=== PATIENT | female | born 1985 | race Caucasian/White ===

== ENCOUNTER 2017-03-05 05:30 | Inpatient (IN) | payer OTHER ==
[2017-03-05] MEDS: Lactated Ringer's 1,000 ML IV SCH ×2 (07:45→11:43)
[2017-03-05 08:06] VITALS: BMI 24.7
[2017-03-05] MEDS ORDERED: Misoprostol 200 MCG TAB PR PRN (08:16)
[2017-03-05] MEDS ORDERED: HYDROcodone/Acetaminophen 5/325 mg Tablet PO PRN (08:16)
[2017-03-05] MEDS ORDERED: Ibuprofen 800 MG TAB PO PRN (08:16)
[2017-03-05] MEDS ORDERED: LR / Pitocin 40 units/1000 ml 1,000 ML IV PRN (08:16)
[2017-03-05] MEDS ORDERED: Promethazine HCl 25 MG/ML VIAL IM PRN ×2 (08:16→13:31)
[2017-03-05] MEDS ORDERED: Lidocaine 1% (PF) 30 ML VIAL SC PRN (08:16)
[2017-03-05 08:30] LABS: Hematocrit 32.7 % (36.0-47.0); Mean Platelet Volume 9.8 fL (7.4-10.4); Red Blood Cell (RBC) Count 3.51 mill/uL (4.20-5.40); White Blood Cell (WBC) Count 5.5 thou/uL (4.8-10.8)
[2017-03-05] MEDS: LR 500 ML/Oxytocin 10 units 500 ML IV SCH (08:43)
[2017-03-05] MEDS ORDERED: Fentanyl 4 mcg/Marc 0.1% Cadd 100 ML ONE (10:55)
[2017-03-05] MEDS ORDERED: Ondansetron HCl/PF 4 MG/2 ML Vial IVP PRN (13:31)
[2017-03-05] MEDS ORDERED: diphenhydrAMINE 50 MG/ML VIAL IVP PRN (13:31)
[2017-03-05] MEDS ORDERED: Acetaminophen 325 MG TAB PO PRN (13:31)
[2017-03-05] MEDS ORDERED: Naloxone HCl 0.4 mg/ml Vial IVP PRN ×2 (13:31)
[2017-03-05] MEDS ORDERED: ePHEDrine/0.9% NaCl/PF SYRINGE 50 mg/10 ml SLOW IVP PRN (13:31)
[2017-03-05] MEDS ORDERED: Lactated Ringer's 500 ML IV PRN (13:31)
[2017-03-05] MEDS ORDERED: Eucerin (Mineral Oil/Petrolatum,White) 30 gm Jar TOP PRN (13:31)
[2017-03-05] MEDS ORDERED: Fentanyl 4mcg/Marcaine 0.1% Cassette 100 ML EPIDURAL SCH (13:45)
[2017-03-05] MEDS ORDERED: Communication Order-Pharmacy FS SCH (13:45)
[2017-03-05] MEDS: Ondansetron HCl/PF 4 MG/2 ML Vial IVP PRN ×2 (14:45→19:29)
[2017-03-05] MEDS ORDERED: Adacel (T-DAP) 0.5 ML VIAL IM ONE (16:18)
[2017-03-05] MEDS ORDERED: Bisacodyl 10 MG SUPP PR PRN (16:18)
[2017-03-05] MEDS ORDERED: Milk Of Magnesia 30 ML UDCUP PO PRN (16:18)
[2017-03-05] MEDS ORDERED: Benzocaine/Menthol 20-0.5% 60 ML CAN TOP PRN (16:18)
--- NOTE | 2017-03-05 16:24 | PDOC.OPDEL ---
OB Operative/Delivery Note Delivery Dr/Surgeon: ASHLEIGH Pre-Delivery Diagnosis: elective induction Procedure/Post Delivery Dx: spontaneous vaginal delivery Weeks gestation: 40 Anesthesia: epidural - Findings A Sex: male Weight: 7 lb 8 oz - 5 min: 8 - 10 min: 9 - Additional Findings/Plan Placenta delivered: spontaneous Repaired Obstetrical Laceration: 2nd degree Estimated blood loss: 250ML Post delivery plan: routine recovery
[2017-03-05] MEDS ORDERED: LR / Pitocin 40 units/1000 ml 1,000 ML IV SCH (16:30)
[2017-03-05] MEDS: Ferrous Sulfate 325 MG TAB PO SCH (18:02)
[2017-03-05] MEDS ORDERED: Bupivacaine 0.25% HCL 30 ML VIAL ONE (20:06)
[2017-03-05] MEDS: Ibuprofen 800 MG TAB PO SCH (20:46)
[2017-03-05] MEDS: Docusate (Surfak) 240 MG CAP PO SCH (20:46)
[2017-03-05] MEDS ORDERED: Hydrocortisone/Pramoxine (Proctofoam HC) 10 GM BOX PR PRN (22:02)
[2017-03-06] MEDS: Lactated Ringer's 1,000 ML IV SCH ×3 (00:54→16:23)
[2017-03-06] MEDS: Ibuprofen 800 MG TAB PO SCH ×3 (05:00→21:48)
[2017-03-06] MEDS: LR 500 ML/Oxytocin 10 units 500 ML IV SCH (07:44)
[2017-03-06] MEDS: Ferrous Sulfate 325 MG TAB PO SCH ×2 (07:44→17:27)
[2017-03-06] MEDS: Prenatal Vitamin 1 TAB PO SCH (08:20)
[2017-03-06] MEDS: Docusate (Surfak) 240 MG CAP PO SCH ×2 (08:20→21:49)
--- NOTE | 2017-03-06 09:18 | PDOC.PP ---
Post Progress Note Post Day #: 1 PO intake tolerated: yes Flatus: yes Ambulation: yes Vital Signs (12 hours) Temp Pulse Resp BP 03/06/17 08:11 98.2 F 69 20 126/73 03/06/17 04:55 98.0 F 64 18 125/75 03/06/17 00:10 98.3 F 59 L 18 03/05/17 22:40 98.3 F 59 L 18 144/75 H Weight Weight 172 lb - Physical Examination General: NAD Cardiovascular: no m/r/g, RRR Respiratory: clear to ausculation bilateral Abdominal: + bowel sounds, lochia, no distention, appropriately TTP Result Diagrams: 03/05/17 07:45 Additional Labs: Post Labs Hep Bs Antigen Non-Reactive S/CO (NonReactive) 03/05/17 07:45 - Assessment/Plan Doing well post day 1 routine care. Possible d/c this PM or in AM. Has 6 week post f/u
[2017-03-06] MEDS ORDERED: traMADol HCl 50 MG TAB PO PRN ×2 (11:49→16:18)
[2017-03-06] MEDS ORDERED: HYDROcodone/Acetaminophen 5/325 mg Tablet PO PRN (13:01)
[2017-03-06] MEDS: HYDROcodone/Acetaminophen 5/325 mg Tablet PO PRN ×2 (15:12→20:20)
[2017-03-07] MEDS: Lactated Ringer's 1,000 ML IV SCH ×2 (02:22→08:15)
[2017-03-07] MEDS: HYDROcodone/Acetaminophen 5/325 mg Tablet PO PRN ×2 (02:25→11:14)
[2017-03-07] MEDS: Ibuprofen 800 MG TAB PO SCH (06:20)
[2017-03-07] MEDS: LR 500 ML/Oxytocin 10 units 500 ML IV SCH (08:15)
[2017-03-07] MEDS: Ferrous Sulfate 325 MG TAB PO SCH (08:15)
[2017-03-07 08:35] VITALS: BP 135/82; TEMP 97.9
[2017-03-07] MEDS: Prenatal Vitamin 1 TAB PO SCH (09:31)
[2017-03-07] MEDS: Docusate (Surfak) 240 MG CAP PO SCH (09:31)
--- NOTE | 2017-03-07 14:53 | DIS ---
DATE OF ADMISSION: 03/05/2017 DATE OF DISCHARGE: 03/07/2017 PRINCIPAL PROCEDURE: Spontaneous vaginal . HOSPITAL COURSE: In brief, this is a patient who arrived at 40 weeks gestation for elective inducti on by Dr. Taylor. She underwent a spontaneous vaginal delivery on 03/05/2017. , the jose ent had an uncomplicated stay. I evaluated the patient on 03/07/2017 and found her to be afebrile w ith a temperature range of 98.4 to 98, pulse was in the 60s to 70s, respirations were 18 to 20, bloo d pressure range was 138/76 to 134/86 on 03/07/2017. On 03/06/2017, blood pressure was 126/73 to 12 3/77. LABORATORY ASSESSMENT: Hemoglobin A1c and syphilis serologies were negative. PHYSICAL EXAMINATION: On day of discharge, she was in no acute distress. Uterus was soft and nonte nder and fundus was firm. There was no evidence of heavy bleeding on exam. She was clinically stab le without evidence of febrile morbidity. The decision was made to send her home on 03/07/2017 which was day #2. She was sent home with Motrin for pain p.r.n. She is to follow up with Dr. Taylor in 2 to 3 weeks for routine postpa rtum care.
== END 2017-03-07 13:10 | disposition home or self-care (01) | DRG 775 ==
LOC: L&D 06:50 → 3SW 18:52
PROVIDERS: ADMIT Obstetrics & Gynecology; ATTEND Obstetrics & Gynecology
PROC: 10E0XZZ Delivery of Products of Conception, External Approach (ICD-10-PCS; principal; 2017-03-05)
PROC: 0KQM0ZZ Repair Perineum Muscle, Open Approach (ICD-10-PCS; 2017-03-05)
PROC: 3E0P3VZ Introduction of Hormone into Female Reproductive, Percutaneous Approach (ICD-10-PCS; 2017-03-05)
DX: O70.1 Second degree perineal laceration during delivery (principal); Z37.0 Single live birth; Z3A.40 40 weeks gestation of pregnancy
CPT/HCPCS: 85027; 86780; 87340; 90715; J2001; J2405; J7120; S0020